=== PATIENT | male | born 1990 | race Caucasian/White ===

== ENCOUNTER 2023-03-02 20:55 | Emergency (ER) | payer BC, SELFPAY ==
[2023-03-02 21:19] VITALS: BP 133/64; PULSE 84; RESP 16; TEMP 36.8; O2SAT 96; BMI 26.9
[2023-03-02 23:56] VITALS: BP 114/65; PULSE 88; RESP 18; O2SAT 97
--- NOTE | 2023-03-03 00:50 | ED.GENADULT ---
HPI - General Adult General Chief complaint: Dental/Oral Stated complaint: pain from ear to jawline Time Seen by Provider: 03/03/23 00:06 Source: patient Mode of arrival: ambulatory Limitations: no limitations History of Present Illness HPI narrative: 33 yold male presents to the ED for right lower dental pain, right ear pain, and jaaw pain. patient admits to poor dental hygeine and rott[place] teeth. patient denies any chest pain, or shortness of breath. patient denies any neck swelling. Patient denies any drooling or change in voice Related Data Previous Rx's Medication Instructions Recorded amoxicillin 875 mg-potassium 1 tab PO Q12H 10 days #20 tabs 03/03/23 clavulanate 125 mg tablet naproxen 500 mg tablet 500 mg PO BID PRN pain 7 days #14 03/03/23 tabs Allergies Allergy/AdvReac Type Severity Reaction Status Date / Time No Known Allergies Allergy Verified 03/02/23 21:19 Review of Systems Review of Systems: dental pain Yes all other systems are reviewed and are negative [facility] Social History Social History Smoked in Last 30 Days: Yes Use of substances other than those prescribed or required for medical reasons: No Advance Directives: No Advance Directives Information Provided: Yes Physical Exam ED Vital Signs: Vital Signs - 24 hr 03/02/23 23:56 Pulse Rate 88 Respiratory Rate 18 Blood Pressure 114/65 Pulse Oximetry 97 BMI result Body Mass Index 26.9 Const General: cooperative, healthy appearing, comfortable, no acute distress, well developed, alert, awake and Physically active Orientation/consciousness: oriented to person, oriented to place, oriented to time and patient oriented x3 HENMT Other: NEgative for any facial or neck swelling Head: Yes normal to inspection, Yes No palpable skull fracture present, Yes normocephalic, Yes atraumatic and No abrasion Ears: hearing grossly normal bilaterally, external ears normal, TM's normal bilaterally, EAC's normal, mastoids normal and no periauricular adenopathy Teeth image: 1. Teeth are rotten and decay. Tooth has mild pus. no gum swelling, redness, or trismus Throat: Yes posterior oropharynx normal, Yes tonsils normal and Yes uvula midline Eyes General: appearance normal, both eyes and all related structures Neck Neck: Yes normal visual inspection, Yes full ROM, Yes no lymphadenopathy, Yes no meningeal signs, Yes trachea midline, Yes supple, No anterior neck swelling and No tender Chest Chest palpation & inspection: normal inspection of the chest and normal palpation of entire chest wall Resp Effort & Inspection: normal respiratory effort and able to speak in complete sentences Auscultation: clear to auscultation bilaterally Cardio Jugular venous distension: no JVD Heart sounds: S1 normal heart sound present and S2 normal heart sound present GI Inspection: Yes normal to inspection and No abdominal wall ecchymosis Palpation (GI): Soft to palpation, not firm, nontender, no guarding and not rigid General: Yes no CVA tenderness Back/Spine/Pelvis Back: no CVA tenderness and No back tenderness Skin General skin exam: no rashes or lesions noted, elasticity normal and turgor normal Neuro General: oriented to person, oriented to place, oriented to time, patient oriented x3, gait normal, tone normal, moves all extremities, Normal light touch and pain sensation, no meningeal signs, no focal motor deficits, CN's II-XI intact bilaterally and normal sensation to monofilament Extrem General: Yes normal to inspection and Yes full ROM Psych Appearance: grossly normal, well kempt and not disheveled Medications Administered Discontinued Medications Generic Name Dose Route Start Last Admin Trade Name Freq PRN Reason Stop Dose Admin Ibuprofen 800 mg 03/03/23 01:14 03/03/23 01:40 Ibuprofen 800 Mg Tablet PO 03/03/23 01:15 800 mg ONCE ONE Administration Medical Decision Making Medical Decision Making [facility] Narrative: 33 yold male presents to the ED for right lower dental pain with jaw and right ear pain. negative for facial or neck swelling. Patient has poor dental hygeine and dental decay on exam. NO swelling of neck or face. patient is speaking in full sentences and not using accessory muscles. Differential Diagnosis Differential Diagnoses: The differential diagnosis associated with the presentation includes (dental decay, tootache, otitis media) External Record Review External record reviewed: Other (Prior visist) Prescription Management I considered prescription management with: Pain Medication and Antibiotic Discharge Plan Discharge Clinical Impression: Toothache Patient Disposition: Home, Self-Care Instructions: Toothache (ED) Additional Instructions: Please follow-up with dentist. Return to the ED immediately any facial swelling, neck swelling, drooling, change in voice, worsening toothache, ear pain, or any other concerning symptoms. Prescriptions: New amoxicillin-pot clavulanate 875-125 mg tablet 1 tab PO Q12H 10 Days Qty: 20 0RF naproxen 500 mg tablet 500 mg PO BID PRN (Reason: pain) 7 Days Qty: 14 0RF Interventions: ED Discharge Assessment Last Done: 03/03/23 01:46 Discharge Date/Time: 03/03/23 01:46 Print Language: Slovenian
--- NOTE | 2023-03-03 01:44 | PC.NURSE ---
pt a&o, no sob or chest pain, pt able to speech in full sentences, medicated per Mar, reviewed discharge instructions with pt. pt verbalized understanding.
== END 2023-03-03 01:46 | disposition home or self-care (01) ==
PROVIDERS: Emergency Provider Internal Medicine
DX: K08.89 Other specified disorders of teeth and supporting structures (principal)
CPT/HCPCS: 99283; 99284